=== PATIENT | female | born 1970 | race Caucasian/White ===

== ENCOUNTER 2016-12-06 22:38 | Observation (INO) | payer MEDICARE, MEDICAID ==
[~2016-12-06] VITALS: Ht 165.1 cm; Wt 94.1 kg
[2016-12-06] MEDS ORDERED: SOD CHLORIDE 0.9% 500 ML IV STA (22:51)
--- NOTE | 2016-12-06 23:20 | RADRPT ---
PROCEDURE: XR Chest. CLINICAL INDICATION: Chest pain. TECHNIQUE: Single frontal view of the chest. COMPARISON: None. FINDINGS: The cardiomediastinal silhouette is within normal limits. Hyperinflation suggests a degree of COPD w ith changes of centrolobular emphysema. Portable technique and patient body habitus accentuate pulm onary vascular markings. No signs of pleural fluid or pneumothorax are seen. The osseous structures and soft tissues are unremarkable. IMPRESSION: No evidence for active cardiopulmonary disease. RPTAT: [facility] Physician Annamaria Date Time Electronically viewed and signed by Physician Annamaria on 12/06/2016 23:20 RS/
[2016-12-06 23:32] LABS: ADD SCAN DIFF NO
[2016-12-06 23:36] LABS: BASOPHIL # 0.1 10^3/ul (0.0-0.1); BASOPHILS % 0.7 % (0.0-2.0); EOSINOPHILS # 0.3 10^3/ul (0.0-0.5); EOSINOPHILS % 2.3 % (0.0-7.0); HEMATOCRIT 41.3 % (37.0-47.0); HEMOGLOBIN 14.3 g/dl (12.0-16.0); LYMPHOCYTES % 16.3 % (15.0-51.0); MEAN CORPUSCULAR HEMOGLOBIN 31.2 pg (29.0-33.0); MEAN CORPUSCULAR HGB CONC 34.6 g/dl (32.0-37.0); MEAN PLATELET VOLUME 12.2 fl (7.4-10.4); MONOCYTE # 0.9 10^3/ul (0.3-0.9); NEUTROPHILS % 73.3 % (39.0-77.0); PLATELET COUNT 307 10^3/UL (140-415); RED BLOOD COUNT 4.59 10^6/ul (4.20-5.40); WHITE BLOOD COUNT 12.2 10^3/ul (4.8-10.8)
[2016-12-06 23:46] LABS: INR 0.89; PT RATIO 0.9
[2016-12-06 23:50] LABS: ALANINE AMINOTRANSFERASE 146 IU/L (13-69); ALBUMIN 4.6 g/dl (3.3-4.9); ALBUMIN/GLOBULIN RATIO 1.43; ALKALINE PHOSPHATASE 87 IU/L (42-121); ANION GAP 14 (8-16); ASPARTATE AMINO TRANSFERASE 67 IU/L (15-46); BILIRUBIN,INDIRECT 0.2 mg/dl (0-1.1); BILIRUBIN,TOTAL 0.2 mg/dl (0.2-1.3); BLOOD UREA NITROGEN 12 mg/dl (7-20); CARBON DIOXIDE 23 mmol/L (21-31); CHLORIDE 102 mmol/L (97-110); CREATININE 0.99 mg/dl (0.44-1.00); GLUCOSE 138 mg/dl (70-220); POTASSIUM 5.7 mmol/L (3.5-5.1); SODIUM 133 mmol/L (135-144); TOTAL PROTEIN 7.8 g/dl (6.1-8.1)
[2016-12-07] VITALS (13 sets, daily range): BP systolic 107–140; BP diastolic 59–74; PULSE 72–82; RESP 18–22; Ht 165.1 cm; Wt 94.1 kg
[2016-12-07 00:01] LABS: B-TYPE NATRIURETIC PEPTIDE 65 PG/ML (0-125)
[2016-12-07 00:05] LABS: TROPONIN-I < 0.012 ng/ml (0.00-0.12)
--- NOTE | 2016-12-07 00:38 | ERA ---
ER Documentation Chief Complaint Date/Time DATE: 12/07/16 TIME: 00:37 Chief Complaint weakness this evening HPI This is a 46 year female complains of alternating fevers and chills along with generalized weakness over the past 2 days. Patient has a history of sclerosis. Denies any nausea vomiting. Denies any other current complaints. Patient states increased thirst. No other current complaints. ROS All systems reviewed and are negative except as per history of present illness. PMhx/Soc Medical and Surgical Hx: pt denies Surgical Hx Hx Neurological Disorder: Yes (TIA ) Hx Miscellaneous Medical Probl: Yes (SYSTEMIC SCOLEOSIS ) Hx Alcohol Use: No Hx Substance Use: No Hx Tobacco Use: No Smoking Status: Unknown if ever smoked Physical Exam Vitals Vital Signs Date Time Temp Pulse Resp B/P Pulse Ox O2 Delivery O2 Flow Rate FiO2 12/07/16 00:31 80 12 151/105 100 Room Air 12/06/16 22:48 77 16 147/96 96 Physical Exam Const: [] Head: Atraumatic Eyes: Normal Conjunctiva ENT: Normal External Ears, Nose and Mouth. Neck: Full range of motion..~ No meningismus. Resp: Clear to auscultation bilaterally Cardio: Regular rate and rhythm, no murmurs Abd: Soft, non tender, non distended. Normal bowel sounds Skin: No petechiae or rashes Back: No midline or flank tenderness Ext: No cyanosis, or edema Neur: Awake and alert Psych: Normal Mood and Affect Result Diagram: 12/06/16 2316 12/06/16 2316 Results 24 hrs Laboratory Tests Test 12/06/16 23:16 White Blood Count 12.210^3/ul Red Blood Count 4.5910^6/ul Hemoglobin 14.3g/dl Hematocrit 41.3% Mean Corpuscular Volume 90.0fl Mean Corpuscular Hemoglobin 31.2pg Mean Corpuscular Hemoglobin Concent 34.6g/dl Red Cell Distribution Width 12.0% Platelet Count 83952^3/UL Mean Platelet Volume 12.2fl Neutrophils % 73.3% Lymphocytes % 16.3% Monocytes % 7.0% Eosinophils % 2.3% Basophils % 0.7% Nucleated Red Blood Cells % 0.0/100WBC Neutrophils # 9.010^3/ul Lymphocytes # 2.010^3/ul Monocytes # 0.910^3/ul Eosinophils # 0.310^3/ul Basophils # 0.110^3/ul Nucleated Red Blood Cells # 0.010^3/ul Prothrombin Time 12.0Sec Prothrombin Time Ratio 0.9 INR International Normalized Ratio 0.89 Activated Partial Thromboplast Time 23.0Sec Sodium Level 133mmol/L Potassium Level 5.7mmol/L Chloride Level 102mmol/L Carbon Dioxide Level 23mmol/L Anion Gap 14 Blood Urea Nitrogen 12mg/dl Creatinine 0.99mg/dl Glucose Level 138mg/dl Calcium Level 10.0mg/dl Total Bilirubin 0.2mg/dl Direct Bilirubin 0.00mg/dl Indirect Bilirubin 0.2mg/dl Aspartate Amino Transf (AST/SGOT) 67IU/L Alanine Aminotransferase (ALT/SGPT) 146IU/L Alkaline Phosphatase 87IU/L Troponin I < 0.012ng/ml B-Type Natriuretic Peptide 65PG/ML Total Protein 7.8g/dl Albumin 4.6g/dl Globulin 3.20g/dl Albumin/Globulin Ratio 1.43 Current Medications Medications (Trade) Dose Ordered Sig/Henny Route PRN Reason Start Time Stop Time Status Last Admin Dose Admin Sodium Chloride (NS) 500 ml @ 500 mls/hr Q1H STAT IV 12/06/16 22:51 12/06/16 23:50 DC 12/06/16 23:13 Procedures/MDM EKG: Rate/Rhythm: Normal Sinus Rhythm QRS, ST, T-waves: No changes consistent w/ acute ischemia Impression: No evidence of ischemia or arrhythmia Chest X-ray 1V Interpreted by me: Soft Tissue: No acute abnormalities Bones: No acute abnormalities Mediastinum/Cardiac Silhouette/Lungs: No acute abnormalities Medical decision-makin-year-old female with generalized weakness. At this point patient will be admitted for further evaluation and management. No evidence of focal neurological complaints. Hospitalist notified. Departure Diagnosis: Primary Impression: Acute weakness Condition: Serious LEATHA MCPHERSON GayatriVirgil Dec 07, 2016 00:38
[2016-12-07] MEDS ORDERED: RANO500T2 PO (02:33)
[2016-12-07] MEDS ORDERED: FENT1PAT7 TD (02:33)
[2016-12-07] MEDS ORDERED: ASPI-535 PO (02:33)
[2016-12-07] MEDS ORDERED: BACL20TA PO (02:33)
[2016-12-07] MEDS ORDERED: CLON1TAB28 PO (02:33)
[2016-12-07] MEDS ORDERED: DEXL60CA2 PO (02:33)
[2016-12-07] MEDS ORDERED: ALBU90AE INHALATION (02:33)
[2016-12-07] MEDS ORDERED: METO25TA4 PO (02:33)
[2016-12-07] MEDS ORDERED: DULO60CA59 PO (02:33)
[2016-12-07] MEDS ORDERED: METH1TAB PO (02:33)
[2016-12-07] MEDS ORDERED: OXYC-203 PO (02:33)
[2016-12-07] MEDS ORDERED: PHEN30CA2 PO (02:33)
[2016-12-07] MEDS ORDERED: PENT100C6 PO (02:33)
[2016-12-07] MEDS ORDERED: LEVO100T87 PO (02:33)
[2016-12-07] MEDS ORDERED: PROM25TA14 PO (02:33)
[2016-12-07] MEDS ORDERED: NA POLYST SULFON 15 GM/60 ML BTL PO ONE (04:00)
[2016-12-07] MEDS ORDERED: PROMETHAZINE 25 MG TAB PO PRN (04:00)
[2016-12-07] MEDS ORDERED: NACL 0.9% 3 ML SYG IV SCH (04:00)
[2016-12-07] MEDS ORDERED: PANTOPRAZOLE (EC) 40 MG TAB PO SCH (06:00)
[2016-12-07] MEDS: ONDANSETRON 4 MG INJ IV PRN ×3 (06:50→19:51)
[2016-12-07] MEDS ORDERED: LEVOTHYROXINE 100 MCG TAB PO SCH (07:00)
[2016-12-07 07:15] LABS: ADD SCAN DIFF NO
[2016-12-07 07:21] LABS: BASOPHIL # 0.1 10^3/ul (0.0-0.1); BASOPHILS % 0.6 % (0.0-2.0); EOSINOPHILS # 0.2 10^3/ul (0.0-0.5); EOSINOPHILS % 2.4 % (0.0-7.0); HEMATOCRIT 36.5 % (37.0-47.0); HEMOGLOBIN 12.6 g/dl (12.0-16.0); LYMPHOCYTES # 2.1 10^3/ul (0.8-2.9); LYMPHOCYTES % 21.7 % (15.0-51.0); MEAN CORPUSCULAR HGB CONC 34.5 g/dl (32.0-37.0); MEAN CORPUSCULAR VOLUME 89.9 fl (82.0-101.0); MEAN PLATELET VOLUME 11.8 fl (7.4-10.4); MONOCYTE # 0.7 10^3/ul (0.3-0.9); MONOCYTES % 7.5 % (0.0-11.0); NEUTROPHIL # 6.4 10^3/ul (1.6-7.5); NEUTROPHILS % 67.6 % (39.0-77.0); PLATELET COUNT 260 10^3/UL (140-415); RED BLOOD COUNT 4.06 10^6/ul (4.20-5.40); RED CELL DISTRIBUTION WIDTH 12.1 % (11.5-14.5); WHITE BLOOD COUNT 9.4 10^3/ul (4.8-10.8)
[2016-12-07 07:44] LABS: ALBUMIN 3.8 g/dl (3.3-4.9); ALBUMIN/GLOBULIN RATIO 1.26; BILIRUBIN,INDIRECT 0.1 mg/dl (0-1.1); BILIRUBIN,TOTAL 0.1 mg/dl (0.2-1.3); CALCIUM 8.7 mg/dl (8.4-10.2); CREATININE 0.87 mg/dl (0.44-1.00); PHOSPHORUS 4.7 mg/dl (2.5-4.9); POTASSIUM 4.5 mmol/L (3.5-5.1); TOTAL PROTEIN 6.8 g/dl (6.1-8.1)
[2016-12-07 07:59] LABS: T3 UPTAKE 31.8 % (23.5-40.5)
--- NOTE | 2016-12-07 08:01 | HP ---
DATE OF ADMISSION: 12/07/2016 CHIEF COMPLAINT: Generalized weakness and bilateral hand singling sensation. HISTORY OF PRESENT ILLNESS: The patient is a 46-year-old female with a history of systemic sclerosi s, hypothyroidism, asthma, anxiety/depression, interstitial cystitis, who presented to the emergency department with a chief complaint of generalized weakness. Patient does have deformity as we ll as she most of the time requires assistance with ambulation because of her systemic sclerosis, juve sinha, she said over the past day or two she had been feeling very weak and also was experiencing ti ngling sensation on her 5th digit in both of her hands. She said normally she is able to get hersel f out of bed and walk to the bathroom on her own, but she said especially since yesterday that has b een extremely difficult to impossible to do because of the weakness. Patient also has multiple othe r vague complaints. For example, she told the nurse that her main complaint was some heartburn like symptom in her chest, but she never mentioned it to me until I asked her that question after talkin g to her nurse. She also complains of nausea, dizziness. She also reported that she has a cardiolo gist who she follows up with over at [place], and said she was diagnosed with "inappropriate tach ycardia." She also said she was diagnosed with TIA in 2011, and she thinks at that time she had an elevated troponin, but reported that she never had any cardiac catheterization. She said she was al so diagnosed with "chronic kidney disease stage II," a few years ago. When she presented here; munira barrientos, her BUN was 12 and creatinine 0.9. When patient presented to the ER, blood pressure was 147/96 , heart rate 77, respiratory rate 16, temperature 97.9, oxygen saturation 96% on room air. She was given 500 mL of NS bolus, and had a chest x-ray which showed no evidence for active cardiopulmonary disease. Laboratory values shows a sodium of 133, potassium 5.7, AST 67, ALT 146, WBC 12.2, otherwise the res t of her labs have been stable. REVIEW OF SYSTEMS: A 12-point review of system performed and negative except as mentioned in the HP I. PAST MEDICAL HISTORY: Per HPI. PAST SURGICAL HISTORY: Hysterectomy, cholecystectomy, inguinal hernia repair, and breast augmentati on. PHYSICAL EXAMINATION: VITAL SIGNS: Stable. GENERAL: Overweight female lying in bed, no acute distress; however, initially she did look somehow anxious. HEENT: No obvious head deformity. Extraocular muscles intact. CARDIOVASCULAR: Regular rate and rhythm with no extra sounds. LUNGS: Clear anteriorly. ABDOMEN: Obese, soft, nontender, nondistended. Positive bowel sounds. EXTREMITIES: There is trace pitting edema and also her left leg seems slightly bigger than the righ t. She also has deformity of both hands. LABORATORY: Pertinent positives as mentioned in the HPI. IMAGING: Chest x-ray with no evidence for active cardiopulmonary disease. IMPRESSION: 1. Generalized weakness. 2. History of sclerosis. 3. History of hypothyroidism. 4. History of anxiety/depression. 5. History of asthma. 6. History of interstitial cystitis. PLAN: We will monitor her on the telemetry unit. Her symptom of generalized weakness is also of un known etiology at this point. Note that the patient requires assistance most of the time because of her systemic sclerosis; however, she said she was able to get herself out of bed and able to walk t o the bathroom with some difficulty previously; however, now for the past 1 day has become almost im possible. So for now, plan is for close monitoring. We will attempt to reach family members to see how much she really declined over the past day or two. She does not have any focal weakness, so he ad imaging at this point is not warranted, but we will do so based on clinical course. We will chec k a thyroid profile and we will continue her home medications. Coreg for hyperkalemia. We will ord er urinalysis. She will have physical therapy. Further workup and management will be per clinical course. Her abnormal liver enzymes are likely secondary to fatty liver, but if worsens we will do further wo rkup with hepatitis panel and abdominal ultrasound, but if this remains the same can be worked up as outpatient. Further workup and management per clinical course. IMPRESSION: 1. Hyperkalemia. 2. Mild hyponatremia. 3. Leukocytosis. 4. Elevated transaminases. Dictated By: LEATHA COTO/BRENDAN Conf#: [id number] DID#: [id number]
[2016-12-07] MEDS: RANOLAZINE (SR) 500 MG TAB PO SCH ×2 (08:53→21:08)
[2016-12-07] MEDS: METOPROLOL 25 MG TAB PO SCH ×2 (08:53→21:13)
[2016-12-07] MEDS: BACLOFEN 10 MG TAB PO SCH ×2 (08:54→21:11)
[2016-12-07] MEDS: FAMOTIDINE 20 MG TAB PO SCH ×2 (08:54→21:11)
[2016-12-07] MEDS ORDERED: NON-FORMULARY/PATIENT OWN MED (Dexlansoprazole (Dexilant) 60 MG) PO SCH (09:00)
[2016-12-07] MEDS ORDERED: PENTOSAN POLYSULFATE SODIUM 100 MG PO SCH (09:00)
[2016-12-07] MEDS ORDERED: DULOXETINE 30 MG CAP DR PO SCH (09:00)
[2016-12-07] MEDS ORDERED: PHENTERMINE HCL 15 MG PO SCH (09:00)
[2016-12-07] MEDS ORDERED: ASPIRIN (EC) 81 MG TAB PO SCH (09:00)
[2016-12-07] MEDS: clonAZEPAM 0.5 MG TAB PO SCH ×3 (09:00→21:10)
[2016-12-07] MEDS ORDERED: CLONAZEPAM 1 MG PO SCH (09:00)
[2016-12-07] MEDS ORDERED: NON-FORMULARY/PATIENT OWN MED (Albuterol Sulfate (Proair Respiclick) 2 PUFFS) INHALATION SCH (09:00)
[2016-12-07] MEDS ORDERED: FENTAnyl PATCH 12 MCG/HR TRANSDERM PRN ×2 (10:00→20:00)
[2016-12-07] MEDS: HEPARIN 5,000 UNIT/0.5 ML VIAL SC SCH ×2 (10:15→21:50)
[2016-12-07] MEDS: ALBUTEROL 18 GM INHALER INH SCH ×3 (11:13→21:51)
[2016-12-07 15:03] LABS: ADD UMIC NO; URINE BILIRUBIN (Dip) NEGATIVE (NEGATIVE); URINE BLOOD (Dip) NEGATIVE (NEGATIVE); URINE COLOR LT. YELLOW (YELLOW); URINE GLUCOSE (Dip) NEGATIVE (NEGATIVE); URINE KETONES (Dip) NEGATIVE (NEGATIVE); URINE LEUKOCYTE ESTERASE (Dip) NEGATIVE (NEGATIVE); URINE NITRITE (Dip) NEGATIVE (NEGATIVE); URINE TOTAL PROTEIN (Dip) NEGATIVE (NEGATIVE); URINE UROBILINOGEN (Dip) 0.2 E.U./dL (0.1-1.0)
--- NOTE | 2016-12-07 16:03 | RADRPT ---
Echocardiogram Report Patient Name: REN AGUIRRE Gender: Female Date: 1970 Study Date: 07-Dec-2016 [employer] Driver: [facility] Location: [id number] Ref. Physician: LEATHA NOLAN Quality: Technically Difficult Study Procedures: Transthoracic echocardiogram with complete 2D, M-Mode, and doppler examination. Indications: WEAKNESS. 2D/M Mode Doppler Measurement Value Normal Ranges Measurement Value Normal Ranges LVIDd 2D 3.8 3.5 - 5.6 cm AV Peak Héctor 0.9 m/sec LVIDs 2D 2.5 2.1 - 4.1 cm AV Peak PG 3.5 mmHg LVPWd 2D 0.9 0.6 - 1.1 cm LVOT Peak Héctor 0.9 m/sec IVSd 2D 1.1 0.6 - 1.1 cm LVOT Peak PG 3.0 mmHg AoR Diam 2D 2.0 2.0 - 3.7 cm MV E Peak Héctor 0.8 m/sec EDV 2D 61.1 cm3 MV A Peak Héctor 0.7 m/sec ESV 2D 15.7 cm3 MV E/A 1.2 MV Decel Time 157 msec MV Decel [place] 5 MV E/A 1.2 Findings Left Ventricle: Normal left ventricular systolic function. Normal left ventricular cavity size. Normal left ventricular wall thickness. Ejection fraction is visually estimated at 65 %. Abnormal Diastolic Function. Right Ventricle: Normal right ventricular size. Normal right ventricular systolic function. Left Atrium: The left atrium is normal in size. Right Atrium: The right atrium is normal in size. RA Pressure=3. Mitral Valve: Mild mitral annular calcification. Trace mitral regurgitation. Aortic Valve: Aortic valve not well visualized. Tricuspid Valve: Tricuspid valve not well visualized. There is trace tricuspid regurgitation. Pulmonic Valve: There is trace pulmonic regurgitation. Pericardium: Normal pericardium with no significant pericardial effusion. Aorta: Normal aortic root. IVC: Normal size and normal respiratory collapse consistent with normal right atrial pressure. Conclusions 1.Normal left ventricular systolic function. Normal left ventricular cavity size. Normal left ventricular wall thickness. Ejection fraction is visually estimated at 65 %. Abnormal Diastolic Function. 2.Aortic valve not well visualized. 3.Mild mitral annular calcification. Trace mitral regurgitation. 4.Tricuspid valve not well visualized. There is trace tricuspid regurgitation. Electronically Signed By: Vernon Castro 07-Dec-2016 16:02:58 -0700 Patient Name: REN AGUIRRE Study Date: 07-Dec-2016 [id number]
[2016-12-07] MEDS ORDERED: OXYCODONE/ACETAMINOPHEN (5/325) TAB PO PRN (17:00)
[2016-12-07] MEDS ORDERED: FENTAnyl PATCH 12 MCG/HR TRANSDERM SCH (18:00)
[2016-12-07] MEDS ORDERED: DOCUSATE SODIUM 100 MG CAP PO PRN (22:30)
[2016-12-08] VITALS (8 sets, daily range): BP systolic 104–129; BP diastolic 53–75; PULSE 69–79; RESP 18–20
[2016-12-08] MEDS ORDERED: PROMETHAZINE 25 MG TAB PO PRN (02:00)
[2016-12-08] MEDS ORDERED: OXYCODONE/ACETAMINOPHEN (5/325) TAB PO PRN (02:00)
[2016-12-08] MEDS ORDERED: NACL 0.9% 3 ML SYG IV SCH (02:00)
[2016-12-08] MEDS ORDERED: PANTOPRAZOLE (EC) 40 MG TAB PO SCH (06:00)
[2016-12-08] MEDS ORDERED: LEVOTHYROXINE 100 MCG TAB PO SCH (06:00)
[2016-12-08] MEDS: ONDANSETRON 4 MG INJ IV PRN ×2 (06:54→12:10)
[2016-12-08 07:52] LABS: ADD SCAN DIFF NO
[2016-12-08 08:00] LABS: BASOPHILS % 0.5 % (0.0-2.0); EOSINOPHILS # 0.3 10^3/ul (0.0-0.5); HEMATOCRIT 36.1 % (37.0-47.0); HEMOGLOBIN 12.4 g/dl (12.0-16.0); LYMPHOCYTES # 2.7 10^3/ul (0.8-2.9); LYMPHOCYTES % 35.7 % (15.0-51.0); MEAN CORPUSCULAR HEMOGLOBIN 31.2 pg (29.0-33.0); MEAN CORPUSCULAR HGB CONC 34.3 g/dl (32.0-37.0); MEAN CORPUSCULAR VOLUME 90.7 fl (82.0-101.0); MEAN PLATELET VOLUME 12.1 fl (7.4-10.4); MONOCYTE # 0.6 10^3/ul (0.3-0.9); MONOCYTES % 7.5 % (0.0-11.0); NEUTROPHIL # 3.9 10^3/ul (1.6-7.5); PLATELET COUNT 242 10^3/UL (140-415); RED BLOOD COUNT 3.98 10^6/ul (4.20-5.40); RED CELL DISTRIBUTION WIDTH 12.2 % (11.5-14.5); WHITE BLOOD COUNT 7.5 10^3/ul (4.8-10.8)
[2016-12-08 08:13] LABS: POTASSIUM 3.8 mmol/L (3.5-5.1)
[2016-12-08 08:15] LABS: CREATININE 0.85 mg/dl (0.44-1.00)
[2016-12-08 08:16] LABS: MAGNESIUM 1.9 mg/dl (1.7-2.5); PHOSPHORUS 4.6 mg/dl (2.5-4.9)
[2016-12-08] MEDS: clonAZEPAM 0.5 MG TAB PO SCH ×2 (08:47→13:00)
[2016-12-08] MEDS ORDERED: RANOLAZINE (SR) 500 MG TAB PO SCH (09:00)
[2016-12-08] MEDS ORDERED: DULOXETINE 30 MG CAP DR PO SCH (09:00)
[2016-12-08] MEDS ORDERED: HEPARIN 5,000 UNIT/0.5 ML VIAL SC SCH (09:00)
[2016-12-08] MEDS ORDERED: FAMOTIDINE 20 MG TAB PO SCH (09:00)
[2016-12-08] MEDS ORDERED: METOPROLOL 25 MG TAB PO SCH (09:00)
[2016-12-08] MEDS ORDERED: BACLOFEN 10 MG TAB PO SCH (09:00)
[2016-12-08] MEDS ORDERED: ALBUTEROL 18 GM INHALER INH SCH (09:00)
--- NOTE | 2016-12-08 13:13 | PDOCDIS ---
Discharge Instructions DIAGNOSIS Discharge Diagnosis: 1. chest pain 2. Generalized weakness (chronic) 3. systemic sclerosis CONDITION Patient Condition: Stable HOME CARE INSTRUCTIONS: Diet Instructions: Low Fat /Cholesterol FOLLOW UP/APPOINTMENTS Appointments 1. Follow up with your primary care provider in 1-2 weeks 2. Follow up with your senior hadoop developer in 1-2 weeks DIAMANTE SHANKAR Dec 08, 2016 13:13
[2016-12-08] MEDS ORDERED: Oxycodone/Acetamin (5/325) PO (13:14)
[2016-12-09] MEDS ORDERED: ASPIRIN (EC) 81 MG TAB PO SCH (09:00)
== END 2016-12-08 16:00 | disposition home or self-care (01) ==
LOC: E/R 22:38 → TEL 12-07 00:19 → UNDOADMIN 12-07 00:19
PROVIDERS: ADMIT Internal Medicine; ATTEND Internal Medicine
DX: R53.1 Weakness (principal); E03.9 Hypothyroidism, unspecified; F32.9 Major depressive disorder, single episode, unspecified; F41.9 Anxiety disorder, unspecified; J45.909 Unspecified asthma, uncomplicated; E87.5 Hyperkalemia; E87.1 Hypo-osmolality and hyponatremia; D72.829 Elevated white blood cell count, unspecified; R74.0 Nonspecific elevation of levels of transaminase and lactic acid dehydrogenase [LDH]; Z87.440 Personal history of urinary (tract) infections; Z90.710 Acquired absence of both cervix and uterus; Z90.49 Acquired absence of other specified parts of digestive tract
CPT/HCPCS: 71010; 80048; 80053; 81003; 83735; 83880; 84100; 84436; 84439; 84479; 84484; 85025; 85610; 85730; 93005; 93306; 96360; 96372; 96374; 96375; 96376; 97162; 99285; G0378; J1644; J2405; J7040